=== PATIENT | female | born 1945 | race Two or more races ===

== ENCOUNTER 2023-05-01 14:23 | Emergency (ER) | payer SELFPAY ==
[2023-05-01 14:58] VITALS: BMI 23.0
[2023-05-01] MEDS ORDERED: SODIUM CHLORIDE 1,769 ML IV ONE (15:25)
[2023-05-01] MEDS ORDERED: ACETAMINOPHEN 1000 MG/100 ML BAG IVPB ONE (15:27)
[2023-05-01] MEDS ORDERED: LACTATED RINGERS SOLUTION 1000 ML INFUS.BAG IV ONE (15:27)
[2023-05-01] MEDS ORDERED: ACETAMINOPHEN INJECTION 100 ML IVPB ONE (15:38)
[2023-05-01 16:04] LABS: VENOUS BASE EXCESS -1.2 mmol/L (-2-2); VENOUS PCO2 45.7 mmHg (38-52); VENOUS PH 7.353 (7.310-7.410)
[2023-05-01 16:21] LABS: BASO % 0.4 % (0-2.0); HEMATOCRIT 38.1 % (32.4-45.2); LYMPH % 15.6 % (8-40); MCH 29.6 pg (25.7-33.7); MCHC 34.2 g/dl (32.0-36.0); MEAN CELL VOLUME 86.6 fl (80-96); MEAN PLT VOLUME 8.7 fl (7.5-11.1); MONO % 7.8 % (3.8-10.2); NEUT % 75.2 % (42.8-82.8); PLATELET COUNT 283 10^3/uL (134-434); RBC 4.41 M/mm3 (3.60-5.2); RDW 13.1 % (11.6-15.6); WHITE BLOOD COUNT 9.3 K/mm3 (4.0-10.0)
[2023-05-01 16:26] LABS: INR 1.16 (0.83-1.09); PROTHROMBIN TIME (PATIENT) 13.4 SEC (9.7-13.0)
[2023-05-01 16:28] LABS: POTASSIUM 3.7 mmol/L (3.5-5.1)
[2023-05-01 16:29] LABS: ACTIVATED PTT 26.5 SECONDS (25.2-36.5)
[2023-05-01 16:31] LABS: CALCIUM 8.2 mg/dL (8.5-10.1)
[2023-05-01 16:32] LABS: ALBUMIN 2.8 g/dl (3.4-5.0); BLOOD UREA NITROGEN 10.9 mg/dL (7-18)
[2023-05-01 16:35] LABS: CREATININE 0.5 mg/dL (0.55-1.3)
[2023-05-01 16:37] LABS: BILIRUBIN,TOTAL 0.4 mg/dL (0.2-1); TOT PROT 6.7 g/dl (6.4-8.2)
[2023-05-01] MEDS ORDERED: KETOROLAC TROMETHAMINE 15 MG/ML VIAL IVPUSH ONE (17:09)
[2023-05-01] MEDS ORDERED: KETOROLAC TROMETHAMINE 15 MG/ML VIAL ONE (17:42)
[2023-05-01 18:08] LABS: URINE APPEARANCE CLEAR; URINE BILIRUBIN NEGATIVE (NEGATIVE); URINE COLOR YELLOW; URINE GLUCOSE (UA) NEGATIVE (NEGATIVE); URINE KETONE NEGATIVE (NEGATIVE); URINE LEUK ESTERASE NEGATIVE (NEGATIVE); URINE NITRITE NEGATIVE (NEGATIVE); URINE PROTEIN NEGATIVE (NEGATIVE)
[2023-05-01 21:22] VITALS: BP 110/47; PULSE 69; RESP 18; TEMP 98
== END 2023-05-01 21:26 | disposition home or self-care (01) ==
LOC: JER 14:23
PROC: 3E033NZ Introduction of Analgesics, Hypnotics, Sedatives into Peripheral Vein, Percutaneous Approach (ICD-10-PCS; principal; 2023-05-01)
PROC: 3E0333Z Introduction of Anti-inflammatory into Peripheral Vein, Percutaneous Approach (ICD-10-PCS; 2023-05-01)
DX: J18.9 Pneumonia, unspecified organism (principal); R07.0 Pain in throat; R05.9 Cough, unspecified; R49.0 Dysphonia; R50.9 Fever, unspecified; R19.7 Diarrhea, unspecified; H10.9 Unspecified conjunctivitis; Z20.822 Contact with and (suspected) exposure to COVID-19
CPT/HCPCS: 0241U-QW; 36415; 71045-TC-FY; 71250-TC; 80053; 81003; 82803; 83605; 84484; 85025; 85610; 85730; 87040; 87086; 87651; 93005; 93010; 99285-25